=== PATIENT | female | born 1950 | race Caucasian/White ===

== ENCOUNTER → 2022-04-19 | Outpatient (CLI) | payer MEDICARE | END | disposition home or self-care (01) | LOC: RAH 09:46 | PROVIDERS: ATTEND Internal Medicine | DX: M47.816 Spondylosis without myelopathy or radiculopathy, lumbar region (principal); M25.552 Pain in left hip; M54.50 Low back pain, unspecified | CPT/HCPCS: 72100; 73502 ==

== ENCOUNTER → 2022-05-25 | Outpatient (CLI) | payer MEDICARE | END | disposition home or self-care (01) | LOC: RAH 14:34 | PROVIDERS: ATTEND Internal Medicine | DX: M47.26 Other spondylosis with radiculopathy, lumbar region (principal); M48.07 Spinal stenosis, lumbosacral region; M51.27 Other intervertebral disc displacement, lumbosacral region | CPT/HCPCS: 72148 ==

== ENCOUNTER → 2022-06-20 | Outpatient (CLI) | payer MEDICARE | END | disposition home or self-care (01) | LOC: RAH 08:54 | PROVIDERS: ATTEND Internal Medicine | DX: R92.8 Other abnormal and inconclusive findings on diagnostic imaging of breast (principal); N64.89 Other specified disorders of breast | CPT/HCPCS: 77066 ==

== ENCOUNTER → 2022-08-14 | Outpatient (CLI) | payer MEDICARE | END | disposition home or self-care (01) | LOC: RAH 13:38 | PROVIDERS: ATTEND Anesthesiology Pain Medicine | DX: M16.12 Unilateral primary osteoarthritis, left hip (principal); M25.552 Pain in left hip | CPT/HCPCS: 73502 ==

== ENCOUNTER → 2022-12-21 | Outpatient (CLI) | payer MEDICARE | END | disposition home or self-care (01) | LOC: RAH 09:34 | PROVIDERS: ATTEND Clinical Nurse Specialist Family Health | DX: M19.042 Primary osteoarthritis, left hand (principal); M19.041 Primary osteoarthritis, right hand ==

== ENCOUNTER → 2024-01-24 | Outpatient (CLI) | payer MEDICARE | END | disposition home or self-care (01) | LOC: RAH 11:37 | PROVIDERS: ATTEND Anesthesiology Pain Medicine | DX: M25.551 Pain in right hip (principal); M25.561 Pain in right knee | CPT/HCPCS: 73502; 73560 ==

== ENCOUNTER → 2024-02-19 | Outpatient (CLI) | payer MEDICARE | END | disposition home or self-care (01) | LOC: RAH 14:04 | PROVIDERS: ATTEND Internal Medicine | DX: G31.89 Other specified degenerative diseases of nervous system (principal); G43.909 Migraine, unspecified, not intractable, without status migrainosus | CPT/HCPCS: 70551 ==

== ENCOUNTER → 2025-07-15 | Outpatient (CLI) | payer MEDICARE ==
--- NOTE | 2025-07-16 05:27 | HMCIMG ---
EXAM: CR right Hip, 3 View. CLINICAL HISTORY: BURSITIS OF HIP, RIGHT COMPARISON: None provided. FINDINGS: BONES: No acute fracture or aggressive appearing osseous lesion. Mild degenerative changes. JOINTS: No dislocation. The joint spaces are normal. SOFT TISSUES: The soft tissues are unremarkable. IMPRESSION: No acute osseous abnormality. Mild degenerative changes. /Baker
== END | disposition home or self-care (01) ==
LOC: RAH 11:10
PROVIDERS: ATTEND Internal Medicine
DX: M16.11 Unilateral primary osteoarthritis, right hip (principal); M25.551 Pain in right hip; M70.71 Other bursitis of hip, right hip
CPT/HCPCS: 73502

== ENCOUNTER → 2025-07-29 | Outpatient (CLI) | payer MEDICARE ==
--- NOTE | 2025-07-29 21:45 | HMCIMG ---
STUDY MR Pelvis without intravenous contrast. HISTORY Right lower-quadrant pain. TECHNIQUE Multiplanar, multisequence magnetic resonance imaging of the pelvis performed without intravenous contrast. Sequences acquired include: COR T1, COR T2, COR STIR, AX T1, AX T2 FS, AX STIR, SAG T2, and SAG 2D MERGE. COMPARISON None provided. FINDINGS Bowel Limited evaluation of the visualised bowel loops demonstrates no mural thickening, obstruction, or inflammatory change. Bladder Urinary bladder is normal in contour and wall thickness without intraluminal calculus. Reproductive Organs As visualised, the pelvic reproductive structures appear unremarkable. Lymph Nodes No pelvic or inguinal lymphadenopathy. Bones / Osteoarticular Structures No acute fracture, marrow oedema, or aggressive osseous lesion. Mild degenerative osteoarthritic changes are present, characterised by early chondral thinning and marginal osteophyte formation at the visualised pelvic articulations. No joint effusion or synovitis. IMPRESSION * Mild degenerative osteoarthritic changes with early chondral thinning and marginal osteophyte formation; no associated marrow oedema or subchondral collapse. * No acute pelvic abnormality identified to account for right lower-quadrant pain. /Ulysses
== END | disposition home or self-care (01) ==
LOC: RAH 07:44
PROVIDERS: ATTEND Nurse Practitioner Family
DX: M16.11 Unilateral primary osteoarthritis, right hip (principal); M25.751 Osteophyte, right hip; M25.551 Pain in right hip
CPT/HCPCS: 73721